=== PATIENT | female | born 1990 | race Caucasian/White ===

== ENCOUNTER 2020-04-08 12:20 | Inpatient (IN) | payer OTHER ==
[~2020-04-08] VITALS: Ht 170.2 cm; Wt 30.4 kg
[~2020-04-08 12:20] MED LIST: ATENOLOL25 MG PO; CEPHALEXIN500 MG PO; CLEOCIN HCL300 MG PO; CYMBALTA30 MG PO; DIAZEPAM5 MG PO; DOXYCYCLINE HY100 MG PO; NORCO 5-325 TA1 EACH PO; SEPTRA DS TABL1 EACH PO; TRAZODONE HCL50 MG PO; VICODIN 5-3001 EACH PO
--- NOTE | 2020-04-08 15:05 | NUR ---
SWABBED BOTH NARES FOR RAPID COVID TEST
--- NOTE | 2020-04-08 16:50 | NUR ---
04/08/20 1650 Enid Muñoz 1615 PT ARRIVED TO PACU ON RA. VSS. IV INFUSING LR WITH 20 PIT AND MAG ON THE PUMP. PT REPORTS NUASEA, MEDICATION DISCUSSED WITH PRODUCTION PLANNER. 1626 NAUSEA MEDICATION GIVEN PER PRODUCTION PLANNER. PT REPORTS PAIN 04/20.
--- NOTE | 2020-04-09 11:05 | OR ---
[facility] [address] [facility] [place] [address] Signed DATE OF OPERATION: 04/08/2020 SURGEON: Tomer Barrios MD PREOPERATIVE DIAGNOSES: Preeclampsia with severe features, previous section and term . POSTOPERATIVE DIAGNOSES: Preeclampsia with severe features, previous section and term . PROCEDURE: Repeat low transverse segment section, delivery of live male . SHUTTLE FILLER: Dr. Goodrich. ANESTHESIA: Spinal. ESTIMATED BLOOD LOSS: 600 mL. COMPLICATIONS: None. DRAINS: Garcia to bladder. FINDINGS: Live male infant. Weight 5 pounds 13 ounces. Apgars 8 & 9. Normal uterus, normal tubes and ovaries bilateral. DESCRIPTION OF PROCEDURE: The patient was brought to the operating room, placed in supine position. After adequate spinal anesthesia was obtained, she was prepped and draped in usual sterile fashion. Garcia catheter placed in the bladder. A Pfannenstiel skin incision was made with a scalpel. The subcutaneous tissue was dissected with the Bovie. Any obvious bleeding sites were cauterized with the Bovie. The fascia was nicked with scalpel and extended in transverse fashion using curved scissors. The underlying abdominal musculature was bluntly and sharply from the fascia above and below the Electronically Signed By: TOMER BARRIOS MD 04/09/20 1105 PATIENT NAME: FRANCISCO HILL OPERATIVE REPORT DATE OF : [birth year] REPORT #: [id number] PHYSICIAN: TOMER BARRIOS MD PCP: CAMERON MARTINEZ MD REPORT IS CONFIDENTIAL AND NOT TO BE RELEASED WITHOUT AUTHORIZATION [facility] [address] [place], [place] [address] Signed incision. The abdominal musculature was bluntly and sharply along the midline. The peritoneum was grasped with hemostats, elevated, nicked with Metzenbaum scissors and extended in a vertical fashion using Metzenbaum scissors. The Yevgeniy self-retaining retractor was inserted into the incision and tightened in place. The lower uterine segment was identified and the lower uterine segment was carefully nicked with scalpel. Bulging bag of clear fluid came from the incision. The incision was extended in a transverse fashion using finger dissection. Pickups with teeth were used to open the bulging bag of fluid. The has noted to be in vertex BOBBY presentation. The 's head was easily delivered from the incision. The rest of the was easily delivered from the incision. The cord was doubly clamped and cut and the infant passed off table in good condition to awaiting nurse. The placenta was then manually removed. The uterine cavity explored with a lap pad to remove any retained membranes. An angle stitch of 0 Monocryl was placed at one end of the incision and running locking stitch of 0 Monocryl starting at the other end used to close the incision. A 2nd running stitch of 0 Monocryl was used to imbricate the 1st layer. The entire pelvis was irrigated, suctioned, examined and few superficial spots along the lower uterine segment were cauterized with the Bovie. When good hemostasis was obtained, the Yevgeniy retractor was removed and sheet of ACell placed over the lower uterine segment to help with healing. The anterior wall of the peritoneum was then closed using running stitch of 2-0 Vicryl suture. The abdominal musculature was reapproximated using interrupted stitches of 0 Vicryl suture. The abdominal incision was irrigated, suctioned, examined and any bleeding spots cauterized with the Bovie. Powdered ACell was sprinkled over the abdominal musculature to help with healing. The fascia was then closed using two running stitch of 0 Vicryl suture meeting in the midline. Subcutaneous tissue was irrigated, suctioned, and examined. Any bleeding spots were cauterized with the Bovie. The subcutaneous tissue was closed using interrupted stitches of 3-0 Vicryl suture and skin reapproximated using skin clips. The patient tolerated the procedure well, went to recovery room in good condition. The sponge, needle, and instrument count were correct. Tomer Barrios MD MJB/MODL /[id number] Electronically Signed By: TOMER BARRIOS MD 04/09/20 1105 PATIENT NAME: FRANCISCO HILL OPERATIVE REPORT DATE OF : [birth year] REPORT #: [id number] PHYSICIAN: TOMER BARRIOS MD PCP: CAMERON MARTINEZ MD REPORT IS CONFIDENTIAL AND NOT TO BE RELEASED WITHOUT AUTHORIZATION [address] [address] Signed Copies: ~ Electronically Signed By: TOMER BARRIOS MD 04/09/20 1105 PATIENT NAME: FRANCISCO HILL BARB OPERATIVE REPORT DATE OF : [birth year] REPORT #: [id number] PHYSICIAN: TOMER BARRIOS MD PCP: CAMERON MARTINEZ MD REPORT IS CONFIDENTIAL AND NOT TO BE RELEASED WITHOUT AUTHORIZATION
--- NOTE | 2020-04-09 12:10 | PR ---
[facility] [address] [facility] [place], [place] [address] Signed PP Progress Notes Datetime Report Generated by CPN: 04/09/2020 12:09 SUBJECTIVE: [id number] Pain: Abnormal Pain Comments: continued abdominal pain around incision Nausea/Vomiting: Denies Vital Signs: [id number] Vital Signs: Reviewed; Within Normal Limits EXAM: Ongoing Abdomen/Uterus: Normal Lochia: Normal Extremities: Normal Incision: Normal IMPRESSION/PLAN/PROCEDURES: [id number] Impression: Normal Progression Plan: Continue Present Management Other Procedures: TAP Block by BICYCLE MESSENGER Progress Notes: Doing well except still having abdominal pain. Since on Buprenorphine, narcotics not working as well. Continue with Ibuprofen and Percocet for breadthrough pain, also just received TAP Block. Stop MagSO4 Signing Physician: Esteban Henderson MD Copies: ~ *Electronically Signed* 04/09/20 1209 ESTEBAN HENDERSON MD PATIENT NAME: FRANCISCO HILL PROGRESS NOTE DATE OF : [birth year] PHYSICIAN: ESTEBAN HENDERSON MD RPT #: [id number] REPORT IS CONFIDENTIAL AND NOT TO BE RELEASED WITHOUT AUTHORIZATION
--- NOTE | 2020-04-10 13:34 | PR ---
[facility] [address] [facility] [place], [place] [address] Signed PP Progress Notes Datetime Report Generated by CPN: 04/10/2020 13:34 SUBJECTIVE: [id number] Pain: Within Normal Limits Pain Comments: continued abdominal pain around incision Nausea/Vomiting: Denies Vital Signs: [id number] Vital Signs: Reviewed; Within Normal Limits Notable Details: elevated BP earlier today EXAM: Ongoing Abdomen/Uterus: Normal Lochia: Normal Extremities: Normal Incision: Normal IMPRESSION/PLAN/PROCEDURES: [id number] Impression: Normal Progression; Induced Hypertension Plan: Discharge Procedures: None Other Procedures: TAP Block by CHEMICAL PROCESS OPERATOR Progress Notes: Doing well without complaint, tolerating well, with only Motrin and Buprenorphine, BP starting to increase this morning, so given Labetalol this am. Ready to go home, but baby to stay, so will make "Boarder" Status Signing Physician: Esteban Henderson MD Copies: ~ *Electronically Signed* 04/10/20 1334 ESTEBAN HENDERSON MD PATIENT NAME: FRANCISCO HILL PROGRESS NOTE DATE OF : [birth year] PHYSICIAN: ESTEBAN HENDERSON MD RPT #: [id number] REPORT IS CONFIDENTIAL AND NOT TO BE RELEASED WITHOUT AUTHORIZATION
== END 2020-04-10 16:50 | disposition home or self-care (01) | DRG 787 ==
LOC: FBCO 12:20 → FBC 14:10
PROVIDERS: ADMIT General Practice; ATTEND General Practice
PROC: 10D00Z1 Extraction of Products of Conception, Low, Open Approach (ICD-10-PCS; principal; 2020-04-08 15:15)
PROC: 3E0T3BZ Introduction of Anesthetic Agent into Peripheral Nerves and Plexi, Percutaneous Approach (ICD-10-PCS; 2020-04-09)
PROC: 3E0T33Z Introduction of Anti-inflammatory into Peripheral Nerves and Plexi, Percutaneous Approach (ICD-10-PCS; 2020-04-09)
PROC: 3E0234Z Introduction of Serum, Toxoid and Vaccine into Muscle, Percutaneous Approach (ICD-10-PCS; 2020-04-09)
DX: O34.211 Maternal care for low transverse scar from previous cesarean delivery (principal); O99.355 Diseases of the nervous system complicating the puerperium; O99.324 Drug use complicating childbirth; N85.8 Other specified noninflammatory disorders of uterus; O14.14 Severe pre-eclampsia complicating childbirth; G89.18 Other acute postprocedural pain; Z37.0 Single live birth; Z3A.37 37 weeks gestation of pregnancy; O26.893 Other specified pregnancy related conditions, third trimester; O99.02 Anemia complicating childbirth; D64.9 Anemia, unspecified; O99.344 Other mental disorders complicating childbirth; F41.9 Anxiety disorder, unspecified; F32.9 Major depressive disorder, single episode, unspecified; O99.334 Smoking (tobacco) complicating childbirth; F17.290 Nicotine dependence, other tobacco product, uncomplicated; F17.210 Nicotine dependence, cigarettes, uncomplicated; F11.21 Opioid dependence, in remission; Z23 Encounter for immunization; Z67.11 Type A blood, Rh negative; Z79.82 Long term (current) use of aspirin
CPT/HCPCS: 01961; 36415; 64448; 76942; 82565; 82570; 83030; 83735; 84156; 84450; 84520; 84550; 85025; 85027; 85460; 86850; 86900; 86901; 90716; A9270; C9803; J0131; J0690; J1100; J1170; J1644; J2001; J2250; J2274; J2405; J2550; J2590; J2790; J3010; J3475; J7121; U0003

== ENCOUNTER 2021-10-24 21:53 | Emergency (ER) | payer OTHER ==
[~2021-10-24] VITALS: Ht 172.7 cm; Wt 83.9 kg
--- OUTSIDE RECORDS SUMMARY | 2021-10-24 21:56 | XMS ---
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 Rosalba has no Care Guidelines for this patient. Catarina VISIT COUNT (12 MO.) 1 MANNY Thompson TOTAL 1 NOTE: Visits indicate total known visits. ED/UCC VISIT TRACKING (12 MO.) 10/24/2021 21:54 MANNY Rodríguez OR TYPE: Emergency COMPLAINT: - RT SIDE MOUTH PAIN INPATIENT VISIT TRACKING (12 MO.) No inpatient visits to display in this time frame [email or web address]
[2021-10-24] MEDS ORDERED: BUPRENORPHINE HC8 MG SL (22:07)
[2021-10-24] MEDS ORDERED: AMOX TR-K CLV1 EAC1 PO (22:41)
== END 2021-10-24 22:53 | disposition home or self-care (01) ==
LOC: ED 21:53
DX: K04.7 Periapical abscess without sinus (principal); F17.200 Nicotine dependence, unspecified, uncomplicated; Z96.5 Presence of tooth-root and mandibular implants